=== PATIENT | male | born 1975 | race Caucasian/White ===

== ENCOUNTER 2016-11-13 12:05 | Emergency (ER) | payer OTHER ==
[~2016-11-13] VITALS: Ht 175.3 cm; Wt 61.0 kg
[2016-11-13 12:16] VITALS: TEMP 36.5; Ht 175.3 cm; Wt 61.0 kg
[2016-11-13] MEDS ORDERED: IBUPROFEN 600 MG TAB PO STA (12:28)
--- NOTE | 2016-11-13 12:30 | EMERGENCY ROOM VISIT NOTE ---
ED Visit Note First contact with patient: 12:21 CHIEF COMPLAINT: Low back pain HISTORY OF PRESENT ILLNESS: This 41-year-old male patient presents to the emergency department ambulatory complaining of pain in the low back which began suddenly approximately 1.5 hours ago when he was lifting and was leaning too far forward when he put the weight down and felt a sudden pain in the low back. The pain was gradual in onset, is now constant and worse with movement. The patient notes the pain as sharp and a 9/10. The patient has taken nothing relief of the pain. The patient denies any bowel or bladder difficulties. There has been no leg numbness or weakness, and no change in sensation. No nausea or vomiting or abdominal pain. No chest pain or shortness of breath. The patient has not had prior back injuries. REVIEW OF SYSTEMS: No dysuria or increased urinary frequency. A 10 system review of systems was completed and pertinent positives and negatives are in the HPI. ALLERGIES: No known drug allergies MEDICATIONS: None PMH: None SOCIAL HISTORY: The patient lives locally. He does not smoke PHYSICAL EXAM: VITALS: Vitals are noted on the nurse's note and reviewed by myself. No abnormalities noted. GENERAL: This is a 41-year-old male, in no acute distress, nondiaphoretic, well- developed well-nourished. SKIN: The skin was without rashes, erythema, edema, or bruising. Capillary refill less than 2 seconds. NECK: Supple without nuchal rigidity. No cervical spine tenderness. No paraspinous muscle tenderness. HEART: Regular rate and rhythm without murmurs gallops or rubs. LUNGS: Clear to auscultation bilaterally without wheezes, rales or rhonchi. ABDOMEN: Positive bowel sounds x 4. Normal tympanic percussion. Soft, nontender, without masses or organomegaly. Gusman sign negative. MUSCULOSKELETAL: No muscle atrophy, erythema, or edema noted of the back. There is no significant tenderness over the lumbar spinous processes. There is no tenderness over the paraspinous muscles. There is no tenderness over the thoracic spine or paraspinous muscles. There are no muscle spasms present. The patient is slow to move around with maximum tenderness with extension. Negative straight leg raise test. NEURO: Patient was alert and oriented to person place and time. Normal sensation to light and sharp touch. Deep tendon reflexes 2+ in the lower extremities. Dorsalis pedis pulse 2+ bilaterally. Strength is 5/5 in the lower extremities bilaterally. EMERGENCY DEPARTMENT COURSE: The patient was seen and examined. Previous visits were reviewed. The patient is afebrile. The patient presents with low back pain after lifting weights. The patient does not have any neurologic deficit on exam or by history. I do not suspect cauda equina or cord compression. The next her was obtained does not reveal any acute abnormality. The patient was given ibuprofen and declined any stronger pain medication in the emergency department. He was given prescriptions for [place] and ask about. He should return immediately with any loss of bowel or bladder control, saddle anesthesia, leg weakness, numbness or tingling. Otherwise, he should follow-up with his family doctor in 3-5 days. DIAGNOSIS: Lumbar strain DISCHARGE INSTRUCTIONS AND TREATMENT: Rest off your feet for 1 to 2 days, ice for 24 hrs then heat to the low back. See your own doctor or an orthopedist in 3-5 days if you are not improving. Ibuprofen 600 mg every 6 hours if needed for the pain. [place] 1 tablet every 6 hrs for worse pain. Flexeril 3 times a day as needed for muscle spasm. No driving or alcohol use with [place] and Flexeril. Return if any problems with bowel or bladder function or if loss of sensation/ movement of lower extremities. LUMBAR SPINE 5 VIEWS HISTORY: Pain low back pain COMPARISON: None. FINDINGS: There is no fracture. No subluxation. Disc spaces are preserved. IMPRESSION: No fracture or subluxation within the lumbar spine. Current/Historical Medications Scheduled Cyclobenzaprine Hcl (Flexeril), 10 MG PO TID Scheduled PRN Hydrocodone/Acetaminophen 5MG/325MG ([place] 5MG/325MG), 1 TABLET PO Q6 PRN for Pain Allergies Coded Allergies: No Known Allergies (Unverified , 11/13/16) Vital Signs Date Time Temp Pulse Resp B/P Pulse Ox O2 Delivery O2 Flow Rate FiO2 11/13/16 13:18 94 16 127/68 100 11/13/16 12:16 36.5 92 18 127/79 99 Room Air Medications Administered Medications (Trade) Dose Ordered Sig/Skyler Route Start Time Stop Time Status Last Admin Dose Admin Ibuprofen (Motrin Tab) 600 mg NOW STAT PO 11/13/16 12:28 11/13/16 12:29 DC 11/13/16 12:33 600 MG Departure Information Impression Primary Impression: Back strain Additional Impression: Spasm of back muscles Dispostion Home / Self-Care Condition GOOD Prescriptions Hydrocodone/Acetaminophen 5MG/325MG ([place] 5MG/325MG) Tab 1 TABLET PO Q6 Y for Pain, #12 TAB For Initial Treatment Prov: Cheryl Mcdonald PA-C 11/13/16 Cyclobenzaprine Hcl (FLEXERIL) 10 Mg Tab 10 MG PO TID for 7 Days, #21 TAB Prov: Cheryl Mcdonald PA-C 11/13/16 Referrals Gloria Sethi D.O. (PCP) Patient Instructions [facility] Additional Instructions Rest off your feet for 1 to 2 days, ice for 24 hrs then heat to the low back. See your own doctor or an orthopedist in 3-5 days if you are not improving. Ibuprofen 600 mg every 6 hours if needed for the pain. [place] 1 tablet every 6 hrs for worse pain. Flexeril 3 times a day as needed for muscle spasm. No driving or alcohol use with [place] and Flexeril. Return if any problems with bowel or bladder function or if loss of sensation/movement of lower extremities. Problem Qualifiers Primary Impression: Back strain Encounter type: initial encounter Qualified Codes: S39.012A - Strain of muscle, fascia and tendon of lower back, initial encounter
--- NOTE | 2016-11-13 12:59 | DIAGNOSTIC IMAGING REPORT ---
LUMBAR SPINE 5 VIEWS HISTORY: Pain low back pain COMPARISON: None. FINDINGS: There is no fracture. No subluxation. Disc spaces are preserved. IMPRESSION: No fracture or subluxation within the lumbar spine. Electronically signed by: Luis Mora M.D. 11/13/2016 12:58 PM Dictated Date/Time: 11/13/2016 12:57 PM
[2016-11-13] MEDS ORDERED: HYDR-5688 PO (13:12)
[2016-11-13] MEDS ORDERED: CYCL10TA6 PO (13:12)
[2016-11-13 13:18] VITALS: BP 127/68; PULSE 94; O2SAT 100
== END 2016-11-13 13:20 | disposition home or self-care (01) ==
LOC: C.EDB 12:07 → C.EDD 13:20
DX: S39.012A Strain of muscle, fascia and tendon of lower back, initial encounter (principal); X50.0XXA Overexertion from strenuous movement or load, initial encounter